=== PATIENT | female | born 1965 | race Hispanic/Latino ===

== ENCOUNTER 2018-02-19 15:13 | Outpatient (CLI) | payer SELFPAY | END 2018-02-19 15:14 | disposition home or self-care (01) | LOC: BICULT 15:13 | PROVIDERS: ATTEND Physician Assistant | DX: R79.89 Other specified abnormal findings of blood chemistry (principal); K76.0 Fatty (change of) liver, not elsewhere classified | CPT/HCPCS: 76705 ==